=== PATIENT | female | born 1950 | race Two or more races ===

== ENCOUNTER 2018-05-27 07:48 | Outpatient (CLI) | payer OTHER | END 2018-05-27 08:31 | disposition home or self-care (01) | LOC: LAB 07:48 | DX: E55.9 Vitamin D deficiency, unspecified (principal); M85.9 Disorder of bone density and structure, unspecified; E21.2 Other hyperparathyroidism; M81.8 Other osteoporosis without current pathological fracture; E56.1 Deficiency of vitamin K; E88.89 Other specified metabolic disorders; E83.42 Hypomagnesemia ==

== ENCOUNTER 2018-09-03 14:46 | Outpatient (CLI) | payer OTHER | END 2018-09-03 16:19 | disposition home or self-care (01) | LOC: RAD 501 14:46 | DX: M25.572 Pain in left ankle and joints of left foot (principal); M79.672 Pain in left foot; Z76.89 Persons encountering health services in other specified circumstances ==

== ENCOUNTER → 2019-11-02 16:11 | Outpatient (CLI) | payer OTHER | END | disposition home or self-care (01) | LOC: EKG 16:11 | DX: R94.31 Abnormal electrocardiogram [ECG] [EKG] (principal) ==

== ENCOUNTER → 2019-11-02 | Outpatient (CLI) | payer OTHER | END | disposition home or self-care (01) | LOC: RAD 15:14 | DX: R91.8 Other nonspecific abnormal finding of lung field (principal) ==

== ENCOUNTER 2020-06-26 08:18 | Outpatient (CLI) | payer OTHER | END 2020-06-26 08:29 | disposition home or self-care (01) | LOC: RAD 08:18 | PROVIDERS: ATTEND Ophthalmology | DX: R91.8 Other nonspecific abnormal finding of lung field (principal) ==

== ENCOUNTER 2020-06-26 09:00 | Outpatient (CLI) | payer OTHER | END 2020-06-26 09:05 | disposition home or self-care (01) | LOC: EKG 09:00 | PROVIDERS: ATTEND Ophthalmology | DX: R94.31 Abnormal electrocardiogram [ECG] [EKG] (principal) ==

== ENCOUNTER → 2022-01-21 | Outpatient (CLI) | payer OTHER | END | disposition home or self-care (01) | LOC: RAD 15:53 | DX: M25.531 Pain in right wrist (principal) ==